=== PATIENT | male | born 1995 | race Two or more races ===

== ENCOUNTER 2016-06-09 19:14 | Emergency (ER) | payer MEDICAID ==
[~2016-06-09] VITALS: Ht 167.6 cm; Wt 63.5 kg
[2016-06-09 23:52] VITALS: BP 128/89
== END 2016-06-10 02:35 | disposition home or self-care (01) ==
LOC: ER 19:18
DX: S62.306A Unspecified fracture of fifth metacarpal bone, right hand, initial encounter for closed fracture (principal); W01.0XXA Fall on same level from slipping, tripping and stumbling without subsequent striking against object, initial encounter; Y93.89 Activity, other specified; Y92.89 Other specified places as the place of occurrence of the external cause; Y99.8 Other external cause status
CPT/HCPCS: 29125; 73130; 73200